=== PATIENT | female | born 1985 | race Caucasian/White ===

== ENCOUNTER 2017-11-13 15:17 | Emergency (ER) | payer OTHER, MEDICAID ==
[~2017-11-13] VITALS: Ht 154.9 cm; Wt 104.3 kg
== END 2017-11-13 16:02 | disposition home or self-care (01) ==
LOC: ER 15:17
DX: S20.01XA Contusion of right breast, initial encounter (principal); S40.012A Contusion of left shoulder, initial encounter; V49.60XA Unspecified car occupant injured in collision with unspecified motor vehicles in traffic accident, initial encounter; F17.200 Nicotine dependence, unspecified, uncomplicated
CPT/HCPCS: 99284